=== PATIENT | female | born 1930 | race Caucasian/White ===

== ENCOUNTER 2016-09-04 08:38 | Outpatient (CLI) | payer MEDICARE, OTHER | END 2016-09-04 08:39 | disposition critical access hospital (66) | DX: M25.551 Pain in right hip (principal); W18.39XA Other fall on same level, initial encounter; Y92.010 Kitchen of single-family (private) house as the place of occurrence of the external cause | CPT/HCPCS: A0425; A0429 ==

== ENCOUNTER 2016-09-04 08:43 | Inpatient (IN) | payer MEDICARE, OTHER ==
[2016-09-04] MEDS ORDERED: GABAPENTIN 100 MG CAPSULE PO ONE (10:06)
[2016-09-04] MEDS ORDERED: DEXAMETHASONE 10 MG/ML VIAL ONE (10:06)
[2016-09-04] MEDS ORDERED: CHERRY SYRUP 10 ML UDC PO ONE (10:06)
[2016-09-04] MEDS ORDERED: HYDROcod/ACETAM 5/325 MG TABLET ONE (10:06)
[2016-09-04] MEDS ORDERED: PROCHLORPERAZINE 10 MG/2 ML VIAL IVP PRN (11:20)
[2016-09-04] MEDS ORDERED: MORPHINE 2 MG/ML SYRINGE IVP PRN (11:20)
[2016-09-04] MEDS ORDERED: HYDROcod/ACETAM 10 MG/325 MG TABLET PO PRN (11:20)
[2016-09-04] MEDS ORDERED: HYDROcod/ACETAM 5/325 MG TABLET PO PRN (11:20)
[2016-09-04] MEDS ORDERED: ACETAMINOPHEN 325 MG TABLET PO PRN ×2 (11:20→12:30)
[2016-09-04] MEDS ORDERED: SODIUM CHLORIDE FLUSH 0.9% 10 ML SYRINGE IVP PRN (11:20)
[2016-09-04] MEDS ORDERED: ONDANSETRON 4 MG/2 ML VIAL IVP PRN (11:20)
[2016-09-04] MEDS ORDERED: SODIUM CHLORIDE 0.9% 1,000 ML IV SCH (12:00)
[2016-09-04] MEDS ORDERED: CALCIUM CARBONATE CHEW 500 MG TABLET PO SCH (13:00)
[2016-09-04] MEDS: SODIUM CHLORIDE 0.9% 1,000 ML IV SCH ×2 (13:05→19:54)
[2016-09-04] MEDS: HYDROcod/ACETAM 5/325 MG TABLET PO PRN (13:13)
[2016-09-04] MEDS ORDERED: SODIUM CHLORIDE FLUSH 0.9% 10 ML SYRINGE IVP SCH (14:00)
[2016-09-04] MEDS: ONDANSETRON 4 MG/2 ML VIAL IVP PRN (14:46)
[2016-09-04] MEDS: SODIUM CHLORIDE FLUSH 0.9% 10 ML SYRINGE IVP SCH ×2 (14:48→19:43)
[2016-09-04] MEDS: CALCIUM CARBONATE CHEW 500 MG TABLET PO PRN (17:05)
[2016-09-04] MEDS: SODIUM CHLORIDE FLUSH 0.9% 10 ML SYRINGE IVP PRN (19:43)
[2016-09-04] MEDS: PROCHLORPERAZINE 10 MG/2 ML VIAL IVP PRN (19:44)
[2016-09-04] MEDS: MORPHINE 2 MG/ML SYRINGE IVP PRN (19:44)
[2016-09-04] MEDS ORDERED: cefTRIAXone 1 GM in SODIUM CHLORIDE 0.9% MINIBAG 100 ML IV SCH (20:00)
[2016-09-05] MEDS: CALCIUM CARBONATE CHEW 500 MG TABLET PO PRN ×2 (00:02→19:11)
[2016-09-05] MEDS: HYDROcod/ACETAM 5/325 MG TABLET PO PRN ×2 (00:35→20:29)
[2016-09-05] MEDS: SODIUM CHLORIDE FLUSH 0.9% 10 ML SYRINGE IVP PRN ×3 (00:43→07:48)
[2016-09-05] MEDS: MORPHINE 2 MG/ML SYRINGE IVP PRN ×2 (02:00→07:48)
[2016-09-05] MEDS ORDERED: PANTOPRAZOLE 40 MG TABLET PO SCH (07:00)
[2016-09-05] MEDS: SODIUM CHLORIDE FLUSH 0.9% 10 ML SYRINGE IVP SCH ×3 (07:05→20:29)
[2016-09-05] MEDS: PANTOPRAZOLE 40 MG TABLET PO SCH (07:05)
[2016-09-05] MEDS ORDERED: LACTATED RINGERS 1,000 ML IV ONE ×3 (08:23→11:18)
[2016-09-05] MEDS ORDERED: POLYETHYLENE GLYCOL 3350 17 GM PACKET PO SCH (09:00)
[2016-09-05] MEDS ORDERED: DEXAMETHASONE 4 MG/ML VIAL IVP ONE (09:32)
[2016-09-05] MEDS ORDERED: ONDANSETRON 4 MG/2 ML VIAL IVP ONE (09:32)
[2016-09-05] MEDS ORDERED: TRANEXAMIC ACID 1,000 MG/10 ML VIAL IV ONE (09:32)
[2016-09-05] MEDS ORDERED: GLYCOPYRROLATE 1 MG/5 ML VIAL IVP ONE (09:32)
[2016-09-05] MEDS ORDERED: ePHEDrine 50 MG/ML AMP IVP ONE (09:32)
[2016-09-05] MEDS ORDERED: MIDAZOLAM 2 MG/2 ML VIAL IVP ONE (09:32)
[2016-09-05] MEDS ORDERED: NEOSTIGMINE 1 MG/1 ML 10 ML MDV IVP ONE (09:32)
[2016-09-05] MEDS ORDERED: ACETAMINOPHEN 1,000 MG/100 ML VIAL IV ONE (09:32)
[2016-09-05] MEDS ORDERED: LIDOCAINE-MPF 2% 5 ML VIAL IM ONE (09:32)
[2016-09-05] MEDS ORDERED: ceFAZolin 1 GM VIAL IV ONE (09:32)
[2016-09-05] MEDS ORDERED: fentaNYL 250 MCG/5 ML VIAL IVP ONE (09:32)
[2016-09-05] MEDS ORDERED: PHENYLEPHRINE 50 MG/5 ML VIAL IV ONE (09:32)
[2016-09-05] MEDS ORDERED: PROPOFOL 200 MG/20 ML VIAL IVP ONE (09:32)
[2016-09-05] MEDS ORDERED: ROCURONIUM 50 MG/5 ML VIAL IVP ONE (09:32)
[2016-09-05] MEDS ORDERED: BUPIVACAINE 0.5%-EPI 1:200000 PF 30 ML VIAL SUBQ ONE (09:40)
[2016-09-05] MEDS ORDERED: MORPHINE PF 5 MG/10 ML AMP SUBQ ONE (09:45)
[2016-09-05] MEDS ORDERED: KETOROLAC 30 MG/ML VIAL IVP ONE (09:48)
[2016-09-05] MEDS ORDERED: ROPIVACAINE 0.2% PF 20 ML AMPULE SUBQ ONE (09:50)
[2016-09-05] MEDS ORDERED: EPINEPHrine 1 MG/ML AMP IVP ONE (09:50)
[2016-09-05] MEDS ORDERED: BUPIVACAINE 0.5% PF 30 ML VIAL INFIL ONE (10:31)
[2016-09-05] MEDS: POLYETHYLENE GLYCOL 3350 17 GM PACKET PO SCH (11:43)
[2016-09-05] MEDS: SENNA 8.6 MG TABLET PO SCH (13:06)
[2016-09-05] MEDS: DOCUSATE SODIUM 250 MG CAPSULE PO SCH (13:06)
[2016-09-05] MEDS: ceFAZolin 1 GM in SODIUM CHLORIDE 0.9% MINIBAG 100 ML IV SCH ×2 (14:32→19:45)
[2016-09-05] MEDS: SODIUM CHLORIDE 0.9% 1,000 ML IV SCH ×2 (14:33→18:21)
[2016-09-05] MEDS ORDERED: ENOXAPARIN 40 MG/0.4 ML SYRINGE SUBQ SCH ×2 (21:00)
[2016-09-05] MEDS: SULFAMETH/TRIMETH DS 800/160 MG TABLET PO SCH (21:42)
[2016-09-06] MEDS: ceFAZolin 1 GM in SODIUM CHLORIDE 0.9% MINIBAG 100 ML IV SCH (01:56)
[2016-09-06] MEDS: HYDROcod/ACETAM 5/325 MG TABLET PO PRN ×3 (01:57→20:32)
[2016-09-06] MEDS: SODIUM CHLORIDE 0.9% 1,000 ML IV SCH (05:25)
[2016-09-06] MEDS: PANTOPRAZOLE 40 MG TABLET PO SCH (06:23)
[2016-09-06] MEDS: SODIUM CHLORIDE FLUSH 0.9% 10 ML SYRINGE IVP SCH ×3 (07:21→22:33)
[2016-09-06] MEDS ORDERED: POTASSIUM CHLORIDE 20 MEQ TABLET PO ONE (08:00)
[2016-09-06] MEDS: NS W/20 MEQ KCL 1,000 ML IV SCH ×2 (08:47→18:44)
[2016-09-06] MEDS: POLYETHYLENE GLYCOL 3350 17 GM PACKET PO SCH (08:50)
[2016-09-06] MEDS: SULFAMETH/TRIMETH DS 800/160 MG TABLET PO SCH ×2 (08:51→20:32)
[2016-09-06] MEDS: ENOXAPARIN 30 MG/0.3 ML SYRINGE SUBQ SCH (08:52)
[2016-09-06] MEDS: DOCUSATE SODIUM 250 MG CAPSULE PO SCH (08:53)
[2016-09-06] MEDS: SENNA 8.6 MG TABLET PO SCH (10:15)
[2016-09-06] MEDS: ONDANSETRON 4 MG/2 ML VIAL IVP PRN (16:13)
[2016-09-06] MEDS: HYDROmorphone 1 MG/ML SYRINGE IVP PRN (17:58)
[2016-09-06] MEDS: CALCIUM CARBONATE CHEW 500 MG TABLET PO PRN (17:58)
[2016-09-07] MEDS: ONDANSETRON 4 MG/2 ML VIAL IVP PRN ×3 (01:17→16:57)
[2016-09-07] MEDS: NS W/20 MEQ KCL 1,000 ML IV SCH ×2 (04:26→14:37)
[2016-09-07] MEDS: SODIUM CHLORIDE FLUSH 0.9% 10 ML SYRINGE IVP SCH ×3 (05:39→16:57)
[2016-09-07] MEDS: PANTOPRAZOLE 40 MG TABLET PO SCH (06:12)
[2016-09-07] MEDS: SODIUM CHLORIDE FLUSH 0.9% 10 ML SYRINGE IVP PRN (08:01)
[2016-09-07] MEDS ORDERED: BISACODYL 10 MG SUPP PR ONE ×2 (09:20→12:00)
[2016-09-07] MEDS: ENOXAPARIN 30 MG/0.3 ML SYRINGE SUBQ SCH (09:43)
[2016-09-07] MEDS: POLYETHYLENE GLYCOL 3350 17 GM PACKET PO SCH (09:43)
[2016-09-07] MEDS: SENNA 8.6 MG TABLET PO SCH (09:44)
[2016-09-07] MEDS: SULFAMETH/TRIMETH DS 800/160 MG TABLET PO SCH ×2 (09:44→20:40)
[2016-09-07] MEDS: DOCUSATE SODIUM 250 MG CAPSULE PO SCH (09:45)
[2016-09-07] MEDS: PROCHLORPERAZINE 10 MG/2 ML VIAL IVP PRN (19:06)
[2016-09-07] MEDS: HYDROmorphone 1 MG/ML SYRINGE IVP PRN (19:58)
[2016-09-08] MEDS: NS W/20 MEQ KCL 1,000 ML IV SCH ×3 (00:02→20:53)
[2016-09-08] MEDS: CALCIUM CARBONATE CHEW 500 MG TABLET PO PRN ×3 (02:53→12:19)
[2016-09-08] MEDS: PANTOPRAZOLE 40 MG TABLET PO SCH (06:32)
[2016-09-08] MEDS: SODIUM CHLORIDE FLUSH 0.9% 10 ML SYRINGE IVP SCH ×3 (06:40→20:45)
[2016-09-08] MEDS ORDERED: diphenhydrAMINE 25 MG CAPSULE PO SCH (09:00)
[2016-09-08] MEDS: ENOXAPARIN 30 MG/0.3 ML SYRINGE SUBQ SCH (09:32)
[2016-09-08] MEDS: SULFAMETH/TRIMETH DS 800/160 MG TABLET PO SCH ×2 (09:32→20:45)
[2016-09-08] MEDS: POLYETHYLENE GLYCOL 3350 17 GM PACKET PO SCH (09:34)
[2016-09-08] MEDS: SENNA 8.6 MG TABLET PO SCH (09:54)
[2016-09-08] MEDS: DOCUSATE SODIUM 250 MG CAPSULE PO SCH (09:54)
[2016-09-08] MEDS: ONDANSETRON 4 MG/2 ML VIAL IVP PRN (17:35)
[2016-09-08] MEDS: HYDROcod/ACETAM 10 MG/325 MG TABLET PO PRN (21:20)
[2016-09-08] MEDS: PANTOPRAZOLE 40 MG VIAL IVP SCH (23:26)
[2016-09-09] MEDS: HYDROcod/ACETAM 10 MG/325 MG TABLET PO PRN ×2 (04:22→10:40)
[2016-09-09] MEDS: SODIUM CHLORIDE FLUSH 0.9% 10 ML SYRINGE IVP SCH (05:15)
[2016-09-09] MEDS: NS W/20 MEQ KCL 1,000 ML IV SCH (06:18)
[2016-09-09] MEDS ORDERED: SUCRALFATE 1 GM/10 ML UDC PO SCH (07:00)
[2016-09-09] MEDS: PANTOPRAZOLE 40 MG VIAL IVP SCH (10:08)
[2016-09-09] MEDS: ENOXAPARIN 30 MG/0.3 ML SYRINGE SUBQ SCH (10:10)
[2016-09-09] MEDS: DOCUSATE SODIUM 250 MG CAPSULE PO SCH (10:13)
[2016-09-09] MEDS: SULFAMETH/TRIMETH DS 800/160 MG TABLET PO SCH (10:14)
[2016-09-09] MEDS: SENNA 8.6 MG TABLET PO SCH (10:14)
[2016-09-09] MEDS: POLYETHYLENE GLYCOL 3350 17 GM PACKET PO SCH (10:15)
== END 2016-09-09 10:50 | DRG 470 ==
PROC: 30233N1 Transfusion of Nonautologous Red Blood Cells into Peripheral Vein, Percutaneous Approach (ICD-10-PCS; 2016-09-04)
PROC: 0SRR01Z Replacement of Right Hip Joint, Femoral Surface with Metal Synthetic Substitute, Open Approach (ICD-10-PCS; principal; 2016-09-05 08:00)
DX: S72.001A Fracture of unspecified part of neck of right femur, initial encounter for closed fracture (principal); S00.03XA Contusion of scalp, initial encounter; S50.811A Abrasion of right forearm, initial encounter; W18.30XA Fall on same level, unspecified, initial encounter; Y92.009 Unspecified place in unspecified non-institutional (private) residence as the place of occurrence of the external cause; K92.0 Hematemesis; C18.9 Malignant neoplasm of colon, unspecified; C78.7 Secondary malignant neoplasm of liver and intrahepatic bile duct; N39.0 Urinary tract infection, site not specified; E87.1 Hypo-osmolality and hyponatremia; S72.111A Displaced fracture of greater trochanter of right femur, initial encounter for closed fracture; S51.011A Laceration without foreign body of right elbow, initial encounter; W18.39XA Other fall on same level, initial encounter; Y92.000 Kitchen of unspecified non-institutional (private) residence as the place of occurrence of the external cause; D63.0 Anemia in neoplastic disease; B96.20 Unspecified Escherichia coli [E. coli] as the cause of diseases classified elsewhere; I10 Essential (primary) hypertension; F03.90 Unspecified dementia, unspecified severity, without behavioral disturbance, psychotic disturbance, mood disturbance, and anxiety; K21.9 Gastro-esophageal reflux disease without esophagitis; K59.00 Constipation, unspecified; Z90.49 Acquired absence of other specified parts of digestive tract; Z79.891 Long term (current) use of opiate analgesic; Z66 Do not resuscitate

== ENCOUNTER 2016-09-14 20:04 | Outpatient (CLI) | payer MEDICARE, OTHER | END 2016-09-14 20:05 | disposition home or self-care (01) | DX: D64.9 Anemia, unspecified (principal) ==